=== PATIENT | female | born 1975 | race Caucasian/White ===

== ENCOUNTER 2017-08-28 10:19 | Emergency (ER) | payer OTHER ==
[~2017-08-28] VITALS: Ht 167.6 cm; Wt 99.8 kg
[~2017-08-28 10:19] MED LIST: ADVAIR 250-501 EACH; ADVAIR HFA 230M12 GM INH; ATIVAN0.5 MG PO; AUGMENTIN 875-1 EACH PO; BACTRIM DS TAB1 EACH PO; BENTYL20 MG PO; CIPROFLOXACIN500 M1 PO; CYMBALTA20 MG PO; DARVOCET-N 1001 EACH PO; DOXYCYCLINE 10100 MG PO; EFFEXOR 5050 MG/1 T1 PO; EFFEXOR XR75 MG; EXCEDRIN CAPLE1 EACH PO; FEMHRT 1-5 TAB1 EACH PO; FIORICET 50-321 EACH PO; FLEXERIL PO; IBUPROFEN 800800 MG PO; MEDROLDOSEPACK PO; MOBIC7.5 M1 PO; NORCO 5-325 TA1 EAC1 PO; NORCO 5-325 TA1 EACH PO; PENICILLIN VK500 M1 PO; PERCOCET 5-3251 EACH PO; PRENATAL COMPL1 EACH PO; PROAIR HFA8.5 GM; PROVENTIL HFA6.7 G1; PROVENTIL HFA6.7 G1 INH; PROVENTIL IH; PYRIDIUM200 MG PO; REGLAN 10 MG TA10 MG PO; STRATTERA18 MG; SYMBICORT; SYMBICORT160 MCG/4. INH; SYMBICORT80 MCG/4.1 INH; TRAMADOL 50 MG50 MG PO; ULTRAM 50MG TAB50 MG PO; UNICOMPLEX M TA1 TA1 PO; VALIUM5 MG PO; VENTOLIN HFA 1818 GM INH; ZOFRAN ODT4 MG SUBLING
[2017-08-28] MEDS ORDERED: PROAIR RESPICL90 MCG INH (10:26)
[2017-08-28] MEDS ORDERED: VITAMIN D3400 UNIT PO (10:26)
[2017-08-28] MEDS ORDERED: FISH OIL 1,001000 M2 PO (10:26)
[2017-08-28 11:03] LABS: URINE BILIRUBIN NEGATIVE (Negative); URINE BLOOD NEGATIVE (Negative); URINE CLARITY CLEAR; URINE COLOR YELLOW; URINE GLUCOSE-RANDOM NEGATIVE (Negative); URINE KETONES NEGATIVE (Negative); URINE LEUKOCYTES-REFLEX NEGATIVE (Negative); URINE NITRITE-REFLEX NEGATIVE (Negative); URINE PROTEIN NEGATIVE (Negative)
[2017-08-28 11:10] LABS: ABSOLUTE BASOPHILS 0.1 thou/uL (0.0-0.2); ABSOLUTE EOSINOPHILS 0.1 thou/uL (0.0-0.7); ABSOLUTE LYMPHOCYTES 1.3 thou/uL (0.8-5.3); ABSOLUTE MONOCYTES 0.6 thou/uL (0.0-1.2); ABSOLUTE NEUTROPHILS 7.1 thou/uL (1.6-8.1); EOSINOPHILS 0.7 %; HEMATOCRIT 40.8 % (37.0-47.0); HEMOGLOBIN 14.3 gm/dL (12.0-15.0); LYMPHOCYTES 13.8 %; MCH 33.5 pg (26.0-34.0); MCV 95.6 fL (80.0-100.0); MONOCYTES 6.5 %; MPV 8.4 fl. (7.2-11.1); NUCLEATED RBCS 0 /100WBC; PLATELET COUNT* 169 thou/uL (150-400); RBC 4.27 mil/uL (4.20-5.00); RDW-CV 12.9 % (10.5-14.5); WBC 9.1 thou/uL (4.0-11.0)
[2017-08-28 11:14] LABS: CALCIUM 8.6 mg/dL (8.5-10.1); CREATININE 0.7 mg/dL (0.6-1.3)
[2017-08-28 11:19] LABS: ALBUMIN 3.5 g/dL (3.4-5.0); TOTAL BILIRUBIN 0.6 mg/dL (<0.1-1.0); TOTAL PROTEIN 7.5 g/dL (6.4-8.2)
[2017-08-28] MEDS ORDERED: ZOFRAN ODT4 MG PO (12:35)
[2017-08-28] MEDS ORDERED: HYDROCODONE-AP1 EAC6 PO (12:35)
[2017-08-28] MEDS ORDERED: TORADOL 10 MG T10 MG PO (12:36)
[2017-08-28 12:48] LABS: INFLUENZA A ANTIGEN None Detected (None Detect); INFLUENZA B ANTIGEN None Detected (None Detect)
[2017-08-28 13:00] VITALS: BP 124/73
== END 2017-08-28 13:01 | disposition home or self-care (01) ==
LOC: M.ERS 10:19
PROVIDERS: Physician Assistant
DX: R11.2 Nausea with vomiting, unspecified (principal); R19.7 Diarrhea, unspecified; M54.5 Low back pain; G43.909 Migraine, unspecified, not intractable, without status migrainosus; F41.9 Anxiety disorder, unspecified; Z90.49 Acquired absence of other specified parts of digestive tract; Z90.710 Acquired absence of both cervix and uterus; J45.909 Unspecified asthma, uncomplicated; Z90.721 Acquired absence of ovaries, unilateral; Z88.5 Allergy status to narcotic agent

== ENCOUNTER 2019-07-15 13:15 | Emergency (ER) | payer OTHER ==
[~2019-07-15] VITALS: Ht 170.2 cm; Wt 83.9 kg
[~2019-07-15 13:15] MED LIST changes: +FISH OIL 1,001000 M2 PO; +HYDROCODONE-AP1 EAC6 PO; +PROAIR RESPICL90 MCG INH; +TORADOL 10 MG T10 MG PO; +VITAMIN D3400 UNIT PO; +ZOFRAN ODT4 MG PO
[2019-07-15] MEDS ORDERED: EFFEXOR XR75 MG PO (13:25)
[2019-07-15 13:47] LABS: ABSOLUTE BASOPHILS 0.1 thou/uL (0.0-0.2); ABSOLUTE EOSINOPHILS 0.1 thou/uL (0.0-0.7); ABSOLUTE MONOCYTES 0.7 thou/uL (0.0-1.2); ABSOLUTE NEUTROPHILS 6.3 thou/uL (1.6-8.1); BASOPHILS 0.6 %; EOSINOPHILS 1.2 %; HEMATOCRIT 42.3 % (37.0-47.0); LYMPHOCYTES 21.6 %; MCH 34.6 pg (26.0-34.0); MCHC 35.5 g/dL (28.0-37.0); MCV 97.4 fL (80.0-100.0); MONOCYTES 7.6 %; MPV 8.9 fl. (7.2-11.1); NUCLEATED RBCS 0 /100WBC; PLATELET COUNT* 175 thou/uL (150-400); RBC 4.35 mil/uL (4.20-5.00); RDW-CV 12.8 % (10.5-14.5); WBC 9.1 thou/uL (4.0-11.0)
[2019-07-15 13:56] LABS: CREATININE 0.8 mg/dL (0.6-1.3); POTASSIUM 3.8 mmol/L (3.5-5.1)
[2019-07-15 13:59] LABS: PROTIME 10.2 Seconds (9.20-11.50)
[2019-07-15 14:00] LABS: ALBUMIN 3.2 g/dL (3.4-5.0); TOTAL BILIRUBIN 0.7 mg/dL (<0.1-1.0); TOTAL PROTEIN 7.8 g/dL (6.4-8.2)
--- NOTE | 2019-07-15 15:26 | EKG ---
[place] [address] ELECTROCARDIOGRAM REPORT Name: JAMMIETERESA KEMAR Room: [facility]#: [id number] Admission: 07/15/19 Attend Phys: Discharge: Date of : 77 Report #: [id number] THIS REPORT FOR: //name// [facility] ED Test Date: 2019-07-15 Test Time: 13:26:31 Pat Name: TERESA AGUDELO Department: Room: Gender: F Judge: [place]WAK[place] : 1975 Requested By: Aure Yo Order Number: [id number] Radha MD: Fede Blood Measurements Intervals [place] Rate: 88 P: 71 UT: 178 QRS: -6 QRSD: 99 T: 14 QT: 358 QTc: 434 Interpretive Statements Sinus rhythm Ventricular premature complex Probable anteroseptal infarct, old Baseline wander in lead(s) III Compared to ECG 04/20/2009 23:44:03 Ventricular premature complex(es) now present Sinus arrhythmia no longer present Myocardial infarct finding still present Electronically Signed On 07-15-2019 15:25:48 FRY COOK by Fede Blood [email or web address] <ELECTRONICALLY SIGNED> By: Fede Blood MD, FACC 07/15/19 1525 1326 1326 Fede Blood MD, [facility] /EPI
[2019-07-15] MEDS ORDERED: MEDROLDOSEPACK PO (15:39)
[2019-07-15] MEDS ORDERED: PROAIR HFA8.5 GM INH (15:39)
[2019-07-15 16:06] VITALS: BP 127/83
== END 2019-07-15 16:09 | disposition home or self-care (01) ==
LOC: M.ERS 13:15
PROVIDERS: Personal Emergency Response Attendant
DX: J06.9 Acute upper respiratory infection, unspecified (principal); R42 Dizziness and giddiness; G43.909 Migraine, unspecified, not intractable, without status migrainosus; J45.909 Unspecified asthma, uncomplicated; F41.9 Anxiety disorder, unspecified; Z90.49 Acquired absence of other specified parts of digestive tract; Z98.84 Bariatric surgery status; Z90.710 Acquired absence of both cervix and uterus; Z88.5 Allergy status to narcotic agent

== ENCOUNTER 2021-04-03 | Emergency (ER) | payer BC ==
[~2021-04-03] VITALS: Ht 167.6 cm; Wt 90.7 kg
[~2021-04-03] MED LIST changes: +EFFEXOR XR75 MG PO; +PROAIR HFA8.5 GM INH
[2021-04-03 00:25] LABS: URINE BILIRUBIN NEGATIVE (Negative); URINE BLOOD 3+ (Negative); URINE CLARITY CLEAR; URINE COLOR STRAW; URINE GLUCOSE-RANDOM NEGATIVE (Negative); URINE KETONES NEGATIVE (Negative); URINE LEUKOCYTES-REFLEX NEGATIVE (Negative); URINE NITRITE-REFLEX NEGATIVE (Negative); URINE PROTEIN NEGATIVE (Negative); URINE SPECIFIC GRAVITY <= 1.005 (1.005-1.030); URINE UROBILINOGEN 0.2 E.U./dl (0.2-1.0)
[2021-04-03] MEDS ORDERED: CELEXA10 MG PO (00:27)
[2021-04-03 01:08] LABS: ABSOLUTE EOSINOPHILS 0.1 thou/uL (0.0-0.7); ABSOLUTE LYMPHOCYTES 2.2 thou/uL (0.8-5.3); ABSOLUTE MONOCYTES 0.6 thou/uL (0.0-1.2); ABSOLUTE NEUTROPHILS 4.7 thou/uL (1.6-8.1); BASOPHILS 0.4 %; EOSINOPHILS 1.4 %; HEMATOCRIT 41.1 % (37.0-47.0); HEMOGLOBIN 14.6 gm/dL (12.0-15.0); LYMPHOCYTES 28.7 %; MCH 34.9 pg (26.0-34.0); MCHC 35.5 g/dL (28.0-37.0); MCV 98.5 fL (80.0-100.0); MONOCYTES 7.4 %; NUCLEATED RBCS 0 /100WBC; PLATELET COUNT* 159 thou/uL (150-400); POLYS 62.1 %; RBC 4.17 mil/uL (4.20-5.00); RDW-CV 12.7 % (10.5-14.5); WBC 7.7 thou/uL (4.0-11.0)
[2021-04-03 01:14] LABS: CASTS None Seen /LPF (None Seen); SQUAMOUS 0-3 Few /LPF (0-3); URINE RBC 3-10 Few /HPF (0-2); URINE WBC-REFLEX None Seen /HPF (0-5)
[2021-04-03 01:15] LABS: BACTERIA-REFLEX None Seen /HPF (None Seen); CRYSTALS None Seen /LPF (None Seen)
[2021-04-03 01:19] LABS: CALCIUM 8.2 mg/dL (8.5-10.1); CREATININE 0.7 mg/dL (0.6-1.3); POTASSIUM 3.5 mmol/L (3.5-5.1)
[2021-04-03 01:29] LABS: ALBUMIN 3.6 g/dL (3.4-5.0); MAGNESIUM 2.1 mg/dL (1.8-2.4); TOTAL BILIRUBIN 0.4 mg/dL (<0.1-1.0)
[2021-04-03 02:58] LABS: ESR (SEDRATE) 27 mm/hr (0-20)
[2021-04-03] MEDS ORDERED: ZOFRAN ODT4 MG PO (04:57)
[2021-04-03] MEDS ORDERED: CARAFATE 1 GM TA1 GM PO (04:57)
[2021-04-03] MEDS ORDERED: PROTONIX40 MG PO (04:57)
[2021-04-03] MEDS ORDERED: PHENERGAN 25 MG25 M1 PO (04:57)
[2021-04-03 05:07] VITALS: BP 143/90
--- NOTE | 2021-04-03 11:29 | EKG ---
[place] [address] ELECTROCARDIOGRAM REPORT Name: AGUDELOTERESA PAL Room: [facility]#: [id number] Admission: 04/03/21 Attend Phys: Discharge: 04/03/21 Date of : 77 Date of Service: 04/03/21 0043 Report #: [id number] THIS REPORT FOR: //name// [facility] ED Test Date: 2021-04-03 Test Time: 00:43:29 Pat Name: TERESA AGUDELO Department: Room: Gender: F Equipment Man: [facility] : 1975 Requested By: Kelsy Trimble Order Number: [id number] MD: Fede Blood Measurements Intervals Moore Rate: 70 P: 39 MN: 212 QRS: -33 QRSD: 109 T: 0 QT: 435 QTc: 470 Interpretive Statements Sinus rhythm Prolonged MN interval old anterior infarction Compared to ECG 07/15/2019 13:26:31 First degree AV block now present Ventricular premature complex(es) no longer present Electronically Signed On 04-03-2021 11:29:27 CDT by Fede Blood [email or web address] <ELECTRONICALLY SIGNED> By: Fede Blood MD, [facility] 04/03/21 1129 0043 0043 Fede Blood MD, [facility] /EPI
== END 2021-04-03 05:07 | disposition home or self-care (01) ==
LOC: M.ERS
PROVIDERS: Emergency Medicine
DX: R11.2 Nausea with vomiting, unspecified (principal); R10.13 Epigastric pain; R10.11 Right upper quadrant pain; R10.12 Left upper quadrant pain; R04.2 Hemoptysis; R42 Dizziness and giddiness; R06.02 Shortness of breath; G43.909 Migraine, unspecified, not intractable, without status migrainosus; F41.9 Anxiety disorder, unspecified; Z90.711 Acquired absence of uterus with remaining cervical stump; Z90.49 Acquired absence of other specified parts of digestive tract; Z98.84 Bariatric surgery status; Z79.899 Other long term (current) drug therapy; Z88.5 Allergy status to narcotic agent